=== PATIENT | male | born 1940 | race Caucasian/White ===

== ENCOUNTER 2017-05-21 16:34 | Emergency (ER) ==
[2017-05-21 16:47] VITALS: BP 133/68; TEMP 97.5; BMI 21.9
--- NOTE | 2017-05-21 17:13 | ED.PDOC ---
General ED Provider: Dr. TOMY OWENS Chief Complaint: Shortness of Air Stated Complaint: Short of Air; bilateral leg swelling. Time Seen by Physician: 17:09 Mode of Arrival: Walk-In Information Source: Patient Exam Limitations: No limitations Primary Care Provider: JUSTIN MARCANO Nursing and Triage Documentation Reviewed and Agree: Yes Review of Systems - Review Of Systems Constitutional: Reports: No symptoms Respiratory: Reports: Cough GI: Reports: No symptoms : Reports: No symptoms All Other Systems: Reviewed and Negative Past Medical History - Past Medical History Previously Healthy: No (End stage renal failure) Endocrine: Reports: DM 2 Cardiovascular: Reports: Unknown Respiratory: Reports: COPD Hematological: Reports: None Gastrointestinal: Reports: Unknown Genitourinary: Reports: CKD Neuro/Psych: Reports: None Musculoskeletal: Reports: None Cancer: Reports: Unknown - Surgical History General Surgical History: Reports: Unknown - Family History Family History: Reports: Unknown - Social History Smoking Status: Current every day smoker, Heavy tobacco smoker Hx Substance Use: No Alcohol Screening: None Physical Exam - Physical Exam Appearance: Ill-appearing Ill-appearing: Moderate Eyes: MARIOLA, EOMI ENT: Oropharynx normal Neck: Supple Respiratory: Airway patent, Breath sounds equal, Breath sounds diminished (bilat ), Respirations nonlabored Cardiovascular: RRR, Pulses normal GI/: Soft, Nontender Musculoskeletal: Normal strength, ROM intact Skin: Warm, Dry, Pale Neurological: Sensation intact, Motor intact, Alert, Oriented Psychiatric: Affect appropriate, Mood appropriate Interpretation - EKG Interpretation Time of EKG #1: 17:26 Rate: Normal Rhythm: Sinus Ectopy: None Interpretation: Q wave; ST changes; unknown age Critical Care Note - Critical Care Note Total Time (mins): 30 Course - Course Hematology/Chemistry: 05/21/17 17:29 05/21/17 17:29 Orders, Labs, Meds: Lab Review 05/21/17 05/21/17 05/21/17 17:13 17:29 17:29 WBC 5.35 RBC 4.27 L Hgb 13.2 L Hct 39.3 L MCV 92.0 MCH 30.9 MCHC 33.6 RDW Coeff of Marcos 14.5 Plt Count 121 L Immature Gran % (Auto) 0.4 Neut % (Auto) 76.8 Lymph % (Auto) 10.3 Rabun % (Auto) 9.7 Eos % (Auto) 1.9 Baso % (Auto) 0.9 Immature Gran # (Auto) 0.0 Neut # 4.1 Lymph # 0.6 Rabun # 0.5 Eos # 0.1 Baso # 0.1 Puncture Site Rrad O2 Saturation 94.0 L ABG pH 7.430 ABG pCO2 35.1 ABG pO2 68.0 L ABG HCO3 23.3 ABG Total CO2 24 ABG Base Excess -1 Reg Test + FiO2 % 21.0 Sodium 136 Potassium 4.2 Chloride 100 Carbon Dioxide 25 Anion Gap 15.2 BUN 39 H Creatinine 2.22 H Estimated GFR (MDRD) 29.00 BUN/Creatinine Ratio 17.56 Glucose 462 H Calcium 8.1 L Total Bilirubin 0.40 AST 41 H ALT 27 Alkaline Phosphatase 134 H Troponin I 0.1390 B-Natriuretic Peptide Total Protein 5.3 L Albumin 2.6 L Globulin 2.7 Albumin/Globulin Ratio 0.96 05/21/17 17:29 WBC RBC Hgb Hct MCV MCH MCHC RDW Coeff of Marcos Plt Count Immature Gran % (Auto) Neut % (Auto) Lymph % (Auto) Rabun % (Auto) Eos % (Auto) Baso % (Auto) Immature Gran # (Auto) Neut # Lymph # Rabun # Eos # Baso # Puncture Site O2 Saturation ABG pH ABG pCO2 ABG pO2 ABG HCO3 ABG Total CO2 ABG Base Excess Reg Test FiO2 % Sodium Potassium Chloride Carbon Dioxide Anion Gap BUN Creatinine Estimated GFR (MDRD) BUN/Creatinine Ratio Glucose Calcium Total Bilirubin AST ALT Alkaline Phosphatase Troponin I B-Natriuretic Peptide 3484 H Total Protein Albumin Globulin Albumin/Globulin Ratio Orders Category Date Time Status ABG DRAW REQUEST Stat CARDIO 05/21/17 17:14 Completed EKG-(ED ONLY) Stat CARDIO 05/21/17 17:14 Completed ABG Stat LAB 05/21/17 17:13 Completed BNP [B-TYPE NATRIURETIC PEPTIDE] Stat LAB 05/21/17 17:29 Completed CBC W/ AUTO DIFF Stat LAB 05/21/17 17:29 Completed COMPREHENSIVE METABOLIC PANEL Stat LAB 05/21/17 17:29 Completed TROPONIN I Stat LAB 05/21/17 17:29 Completed Vital Signs: Temp Pulse Resp BP Pulse Ox 05/21/17 16:35 97.5 F L 109 H 20 133/68 91 L Departure - Departure Time of Disposition: 18:37 Disposition: HOME SELF-CARE Discharge Problem: CHF (congestive heart failure) Qualifiers: Congestive heart failure type: unspecified congestive heart failure type Renal failure Qualifiers: Renal failure chronicity: chronic Chronic kidney disease stage: stage 4 (severe ) Qualified Code(s): N18.4 - Chronic kidney disease, stage 4 (severe) Instructions: Heart Failure (ED) Condition: Stable Pt referred to PMD for follow-up: Yes (Call for follow up) Additional Instructions: Follow up with primary care; [facility]. Take the Bumex as prescribed to you by primary care. Allergies/Adverse Reactions: Allergies No Known Allergies Allergy (Verified 05/21/17 16:47) Home Medications: Ambulatory Orders Insulin Glargine,Hum.rec.anlog [Lantus] 10 unit SUBCUT BEDTIME 08/02/13 Telmisartan [Micardis] 40 mg PO BID 08/02/13 Bumetanide 1 mg PO DAILY 05/21/17 Dorzolamide HCl 1 drop EACHEYE BID 05/21/17 Insulin Lispro [Humalog] 4 - 5 units SUBCUT QID 05/21/17 Latanoprost [Xalatan] 1 drop EACHEYE BEDTIME 05/21/17 Disposition Discussed With: Patient (Spouse)
[2017-05-21 17:32] LABS: BASOPHILS # (AUTO) 0.1 K/uL (0-0.2); BASOPHILS % (AUTO) 0.9 % (0.0-3.0); EOSINOPHILS # (AUTO) 0.1 K/ul (0.0-0.7); EOSINOPHILS % (AUTO) 1.9 % (0.0-7.0); HEMATOCRIT 39.3 % (42.0-52.0); HEMOGLOBIN 13.2 g/dl (14.0-18.0); IMMATURE GRANULOCYTE % (AUTO) 0.4 % (0.0-5.0); LYMPHOCYTES # (AUTO) 0.6 K/uL (0.60-3.4); LYMPHOCYTES % (AUTO) 10.3 (10.0-50.0); MEAN CORPUSCULAR HEMOGLOBIN 30.9 pg (27.0-31.0); MEAN CORPUSCULAR HGB CONC 33.6 (31.8-35.4); MONOCYTES # (AUTO) 0.5 K/uL (0.4-2.0); MONOCYTES % (AUTO) 9.7 (0-10); NEUTROPHILS # (AUTO) 4.1 K/ul (2.0-6.9); NEUTROPHILS % (AUTO) 76.8; PLATELET COUNT 121 10^3/uL (140-440); RED BLOOD COUNT 4.27 10^6/ul (4.70-6.10); WHITE BLOOD COUNT 5.35 K/ul (4.2-10.2)
[2017-05-21 17:40] LABS: ABG BASE EXCESS -1 (-2.0-2.0); ABG HCO3 23.3 (22.0-26.0); ABG PCO2 35.1 mmHg (35-45); ABG TCO2 24 (22.0-28.0)
[2017-05-21 17:58] LABS: ALBUMIN 2.6 g/dL (3.4-5.0); ALBUMIN/GLOBULIN RATIO 0.96; ANION GAP 15.2; BILIRUBIN,TOTAL 0.4 mg/dL (0.00-1.20); BUN/CREATININE RATIO 17.56; CALCIUM 8.1 mg/dL (8.2-10.2); CREATININE 2.22 mg/dL (0.60-1.10); POTASSIUM 4.2 mmol/L (3.5-5.1); TOTAL PROTEIN 5.3 g/dL (5.8-8.1); TROPONIN I 0.139 ng/ml (0.0000-0.4000)
== END 2017-05-21 18:45 | disposition home or self-care (01) ==
LOC: ED 16:34
DX: I50.9 Heart failure, unspecified (principal); N18.4 Chronic kidney disease, stage 4 (severe); E11.9 Type 2 diabetes mellitus without complications; F17.210 Nicotine dependence, cigarettes, uncomplicated; Z79.899 Other long term (current) drug therapy; Z79.4 Long term (current) use of insulin
CPT/HCPCS: 36415; 80053; 82803; 83880; 84484; 85025; 93005; 93010; 99283